=== PATIENT | male | born 1975 | race Caucasian/White ===

== ENCOUNTER 2022-10-03 10:05 | Emergency (ER) | payer OTHER ==
[2022-10-03 10:40] VITALS: BP 153/90; PULSE 90; RESP 20; TEMP 98.3; BMI 29.6
[2022-10-03] MEDS ORDERED: IBUPROFEN 600 MG TABLET (FP) PO ONE ×2 (10:47→11:09)
== END 2022-10-03 11:26 | disposition home or self-care (01) ==
LOC: FER 10:05
DX: S09.90XA Unspecified injury of head, initial encounter (principal); V43.52XA Car driver injured in collision with other type car in traffic accident, initial encounter
CPT/HCPCS: 99283-25